=== PATIENT | female | born 1970 | race Asian ===

== ENCOUNTER 2018-03-30 17:31 | Emergency (ER) | payer MEDICAID ==
[~2018-03-30] VITALS: Ht 170.2 cm; Wt 51.3 kg
[2018-03-30 17:41] VITALS: BP_SYST 117
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
--- NOTE | 2018-03-30 17:48 | NUR ---
Patient to ER bed 6 to gown for evaluation. Side rails up.
--- NOTE | 2018-03-30 18:21 | NUR ---
Dr. Marcos at bedside to assess pt.
--- NOTE | 2018-03-30 18:42 | NUR ---
Pt to x-ray via W/C.
[2018-03-30 19:34] VITALS: BP_SYST 121
--- NOTE | 2018-03-30 19:35 | NUR ---
Patient given written and verbal discharge instructions and verbalizes understanding. ER MD Marcos discussed with patient the results and treatment provided. Patient in stable condition. ID arm band removed. Rx of Naprosyn given. Patient educated on pain management and to follow up with PMD. Pain Scale 0. Opportunity for questions provided and answered. Medication side effect fact sheet provided. ER [] at bedside examining patient.
== END 2018-03-30 19:35 | disposition home or self-care (01) ==
LOC: SED 17:31
DX: S13.9XXA Sprain of joints and ligaments of unspecified parts of neck, initial encounter (principal); S60.221A Contusion of right hand, initial encounter; V89.2XXA Person injured in unspecified motor-vehicle accident, traffic, initial encounter; Y93.89 Activity, other specified; Y92.89 Other specified places as the place of occurrence of the external cause; Y99.8 Other external cause status
CPT/HCPCS: 72040-TC; 73140-TC; 99284

== ENCOUNTER 2018-04-17 23:18 | Emergency (ER) | payer MEDICAID ==
[~2018-04-17] VITALS: Ht 170.2 cm; Wt 61.2 kg
[2018-04-17 23:32] VITALS: BP_SYST 133
[2018-04-18] MEDS ORDERED: NACL 0.9% 1,000 ML IV ONE (00:39)
[2018-04-18] MEDS ORDERED: KETOROLAC TROMETHAMINE 30 MG VIAL IVP ONE (00:45)
[2018-04-18] MEDS ORDERED: ONDANSETRON HCL 4 MG/2 ML VIAL IVP ONE (00:45)
[2018-04-18 01:16] LABS: BASOPHILS % (AUTO) 0.6 % (0.0-2.0); EOSINOPHILS # (AUTO) 0.4 K/uL (0.0-0.4); EOSINOPHILS % (AUTO) 5.5 % (0.0-4.0); HEMATOCRIT 39.7 % (36-48); HEMOGLOBIN 13.3 g/dL (12.0-16.0); LYMPHOCYTES # (AUTO) 2.9 K/uL (1.0-5.5); LYMPHOCYTES % (AUTO) 40.1 % (20.5-51.5); MEAN CORPUSCULAR HEMOGLOBIN 31 pg (27-31); MEAN CORPUSCULAR HGB CONC 34 % (32-36); MEAN CORPUSCULAR VOLUME 91 fL (79.0-98.0); MONOCYTES # (AUTO) 0.5 K/uL (0.0-1.0); MONOCYTES % (AUTO) 6.8 % (1.7-9.3); NEUTROPHILS # (AUTO) 3.4 K/uL (1.8-7.7); PLATELET COUNT (AUTO) 257 K/uL (130-430); RED BLOOD CELL COUNT(AUTO) 4.36 MIL/uL (4.2-6.2); WHITE BLOOD COUNT (AUTO) 7.2 K/uL (4.8-10.8)
[2018-04-18 01:31] LABS: CALCIUM 8.9 mg/dL (8.4-11.0); CREATININE 0.61 mg/dL (0.55-1.30); POTASSIUM 3.5 mmol/L (3.5-5.1)
[2018-04-18 01:35] LABS: TOTAL BILIRUBIN 0.3 mg/dL (0.0-1.0)
[2018-04-18 02:40] VITALS: BP_SYST 125
== END 2018-04-18 02:40 | disposition home or self-care (01) ==
LOC: SED 23:18
DX: K80.20 Calculus of gallbladder without cholecystitis without obstruction (principal); R03.0 Elevated blood-pressure reading, without diagnosis of hypertension
CPT/HCPCS: 36415; 76700; 80053; 83690; 85025; 96361; 96374; 96375; 99285; J1885; J2405; J7030